=== PATIENT | male | born 2000 | race African-American/Black ===

== ENCOUNTER 2018-05-26 14:35 | Emergency (ER) | payer OTHER, MEDICAID, SELFPAY ==
[2018-05-26 14:39] VITALS: BP 149/91; PULSE 107; RESP 20; TEMP 37.5; O2SAT 100
--- NOTE | 2018-05-26 16:15 | ED_ITS ---
HPI - Eye Problem <CHRISTINA Pack - Last Filed: 05/26/18 22:07> General Chief complaint: Eye Problems Stated complaint: left eye red/swollen Time Seen by Provider: 05/26/18 15:58 Source: patient and family Mode of arrival: ambulatory Limitations: other (Autistic) History of Present Illness HPI Narrative: Patient presents with brother with chief complaint of red left eye. He states that yesterday his left eye became red, watery and slightly swollen. Patient denies eye pain, denies eye pain with movement of eye, denies fever, nausea vomiting diarrhea. Patient denies foreign body sensation. Patient does not use contacts. States his vision is normal. Denies blurry vision, denies double vision. Related Data Home Medications Medication Instructions Recorded Confirmed CA PANTOTHENATE/FOLIC ACID/VIT 1 tab PO Q DAY #0 05/01/11 (MULTIVITAMIN) Previous Rx's Medication Instructions Recorded docusate sodium [Colace] 300 mg PO BID #180 cap 06/27/16 hydrocortisone 30 gm TOPICAL SEE INSTRUCTIONS #60 06/12/17 gm sulfamethoxazole-trimethoprim 1 tab PO BID #20 tab 06/12/17 polymyxin B sulf-trimethoprim 1 drop EYE-LEFT QID 10 Days #10 ml 05/26/18 Allergies Allergy/AdvReac Type Severity Reaction Status Date / Time No Known Drug Allergies Allergy Verified 05/26/18 14:42 Review of Systems <CHRISTINA Pack - Last Filed: 05/26/18 22:07> Review of Systems GENERAL: Denies chills, fatigue, malaise, fever, sweats. HEENT: D see HPI RESPIRATORY: Denies dyspnea, cough, wheezing, hemoptysis, sputum. CARDIOVASCULAR: Denies chest pain, palpitations, orthopnea, edema, GASTROINTESTINAL: Denies nausea, vomiting, abdominal pain, diarrhea, constipation, melena. : Denies dysuria, frequency, incontinence, hematuria, urinary retention. MUSCULOSKELETAL: denies weakness, joint pain, or bony pain SKIN: Denies rash, skin lesions, or other NEUROLOGIC: Denies weakness, headache, numbness, change in speech, confusion, seizures, incoordination. PSYCHIATRIC: No concerning psychosocial issues. 12 point review of systems is negative except for those stated above Exam <CHRISTINA PackBC - Last Filed: 05/26/18 22:07> Narrative Exam Narrative: GENERAL: This is a well-nourished, well-developed patient, no acute distress HEAD: Atraumatic. Normocephalic. No temporal or scalp tenderness. No pain to palpation around left eye. EYES: Pupils equal round and reactive. Extraocular motions intact. No nystagmus noted. Crusting noted around the left lid. Slight left corneal injection. Crusting noted to be stuck in left lashes. ENT: Nose without bleeding, purulent drainage or septal hematoma. Throat without erythema, tonsillar hypertrophy or exudate. Uvula midline. Airway patent. NECK: Trachea midline. No JVD or lymphadenopathy. Supple, nontender, no meningeal signs. CARDIOVASCULAR: Regular rate and rhythm without murmurs, gallops, or rubs. RESPIRATORY: Clear to auscultation. Breath sounds equal bilaterally. No wheezes , rales, or rhonchi. GASTROINTESTINAL: Abdomen soft, non-tender, nondistended. No hepato-splenomegaly , or palpable masses. No guarding. EXTREMITIES: No clubbing, cyanosis, or edema. No joint tenderness, effusion, or edema noted. BACK: Nontender without deformity or crepitance. No flank tenderness. NEURO: AOx3. SKIN: No rash or erythema. No rash, erythema noted around eyes. Initial Vital Signs Initial Vital Signs: Vital Signs Temperature 99.5 F 05/26/18 14:39 Pulse Rate 107 H 05/26/18 14:39 Respiratory Rate 20 05/26/18 14:39 Blood Pressure 149/91 H 05/26/18 14:39 Pulse Oximetry 100 05/26/18 14:39 <Maria Workman DO - Last Filed: 05/29/18 07:51> Initial Vital Signs Initial Vital Signs: Vital Signs Temperature 99.5 F 05/26/18 14:39 Pulse Rate 107 H 05/26/18 14:39 Respiratory Rate 20 05/26/18 14:39 Blood Pressure 149/91 H 05/26/18 14:39 Pulse Oximetry 100 05/26/18 14:39 Course <ALEKSANDER Pack-BC - Last Filed: 05/26/18 22:07> Vital Signs - 8 hr 05/26/18 14:39 05/26/18 16:28 Temperature 99.5 F Pulse Rate 107 H 102 H Respiratory Rate 20 18 Blood Pressure 149/91 H 141/86 H Pulse Oximetry 100 100 <Maria Workman DO - Last Filed: 05/29/18 07:51> Vital Signs - 8 hr 05/26/18 14:39 05/26/18 16:28 Temperature 99.5 F Pulse Rate 107 H 102 H Respiratory Rate 20 18 Blood Pressure 149/91 H 141/86 H Pulse Oximetry 100 100 MDM - Eye Problem <ALEKSANDER Pack-BC - Last Filed: 05/26/18 22:07> MDM Narrative Medical decision making narrative: Patient presents with chief complaint of red crusting left eye. Given his exam, will treat for conjunctivitis. Discussed at length follow-up if worsening, no improvement, eye pain, visual defect or spreading erythema. Patient and brother had no questions or concerns upon discharge. Discharge Plan Departure Patient Disposition: Home Clinical Impression: Conjunctivitis Discharge Date/Time: 05/26/18 16:28 Interventions: ED Discharge Assessment Last Done: 05/26/18 16:28 Instructions: DI for Conjunctivitis Activity Restrictions/Additional Instructions: Please start eye antibiotic drops. Monitor for complaints of decreased vision, eye pain, spreading redness or worsening or no improvement. Please follow-up with primary care come back to the emergency department if needed. Prescriptions: New polymyxin B sulf-trimethoprim 10,000 unit- 1 mg/mL drops 1 drop EYE-LEFT QID 10 Days Qty: 10 RF: 0 No Action CA PANTOTHENATE/FOLIC ACID/VIT (MULTIVITAMIN) 1 tab PO Q DAY Qty: 0 RF: 0 docusate sodium [Colace] 100 MG capsule 300 mg PO BID Qty: 180 RF: 1 sulfamethoxazole-trimethoprim 800 MG/160 MG tablet 1 tab PO BID Qty: 20 RF: 0 hydrocortisone 30 GM cream 30 gm Topical SEE INSTRUCTIONS Qty: 60 RF: 2 Referrals: Nanette Fry MD [Primary Care Provider] - <Maria Workman DO - Last Filed: 05/29/18 07:51> Cosign ED Attending Cosignature Attestation: I was immediately available in the department for consultation. This documentation has been reviewed and I agree with assessment and plan. Supervised by Maria Workman DO
[2018-05-26 16:28] VITALS: BP 141/86; PULSE 102; RESP 18; O2SAT 100
== END 2018-05-26 16:28 | disposition home or self-care (01) ==
PROVIDERS: Emergency Provider Nurse Practitioner Family; PCP Pediatrics
DX: H10.9 Unspecified conjunctivitis (principal)
CPT/HCPCS: 99282

== ENCOUNTER → 2018-10-02 13:14 | Outpatient (CLI) | payer MEDICARE, MEDICAID, SELFPAY ==
--- NOTE | 2018-10-08 15:21 | DIET.PN ---
Met w/pt and mom on 10/02 for a nutrition consultation. Mom requested validation that pt continues to need Boost ONS in order to maintain his nutrition. Dx: BRR, nutrition deficiencies per MD Problems (r/t BRR): limited food acceptance; adversion to many textures Ht: 6'3.5 Wt: 168# per (foster) mom BMI: 29 Age 18yo Usual diet: Pt sleeps until 1pm; refused any solid foods until about 4pm. Will drink Boost during day, however 4pm/dinner: will eat small portions of several foods (grazing), including cheese, yogurt, up to 3oz portion some meats (last night had meatloaf), few vegs- green beans, fries, sweet potato, peas (1/4c), broccoli loves jello and this is the only way mom can sneak in some fruit on occassion. If left up to pt he would eat 6 ind servings of yogurt, whole pack of cheese slices, jello, peanuts, . GI: Per mom, forcing pt to eat anything he doesn't want cause him to vomit and become ill; resulting in weight loss. Has tried making high pro smoothies- pt refuses. Assessment: Limited food acceptance, adversion to many foods and sensitive stomach makes pt high risk for nutritional compromise. Boost provides needed nutrients to avoid wt loss and nutritional deficiencies. Providing adequate nutrition with foods other than Boost would be a big challenge to keep intake consistent. Intervention: Provided assessment of current diet intake and eating ability; suggestions for increasing nutritional intake w/real food. Plan: Suggest supplemental ONS - Boost - to help meet nutritional needs.
== END ==
PROVIDERS: PCP Pediatrics; Visit Provider Pediatrics
DX: E63.9 Nutritional deficiency, unspecified (principal); Z71.3 Dietary counseling and surveillance; Z68.29 Body mass index [BMI] 29.0-29.9, adult
CPT/HCPCS: 97802